=== PATIENT | female | born 1940 | race Caucasian/White ===

== ENCOUNTER 2022-02-06 01:10 | Inpatient (IN) | payer MEDICARE, OTHER ==
[~2022-02-06] VITALS: Ht 162.6 cm; Wt 62.1 kg
[2022-02-06] VITALS (45 sets, daily range): BP systolic 95–165; BP diastolic 35–120
[2022-02-06] MEDS ORDERED: ALBUTEROL (0.083%) 2.5MG/3ML NEB HHN STA (01:50)
[2022-02-06] MEDS ORDERED: IPRATROPIUM BROMIDE (0.02%) 0.5MG/2.5ML NEB HHN STA (01:50)
[2022-02-06] MEDS ORDERED: METHYLPREDNISOLONE SOD SUCC 125 MG/2 ML VIAL IV STA (01:50)
[2022-02-06 02:14] LABS: BASOPHILS % 0.1 % (0.0-2.0); EOSINOPHILS % 0.1 % (0.0-5.0); HEMATOCRIT. 38.6 % (36.0-48.0); HEMOGLOBIN. 12.9 g/dL (12.0-16.0); LYMPHOCYTES % 8.6 % (20.0-50.0); MEAN CORPUSCULAR HEMOGLOBIN 31.3 pg (28.0-32.0); MEAN CORPUSCULAR VOLUME 93.6 fL (81.0-99.0); MEAN PLATELET VOLUME 9.6 fl (7.4-10.4); MONOCYTES % 8.4 % (2.0-8.0); NEUTROPHILS % 82.8 % (40.0-76.0); PLATELET 146 x1000/uL (130-400); RED BLOOD CELL COUNT 4.12 mill/uL (4.2-5.4)
[2022-02-06 02:17] LABS: CHLORIDE 108 mEq/L (98-107)
[2022-02-06 02:17] LABS: BG BASE EXCESS 1.6 mmol/L (-2.0-2.0); BG CARBOXYHEMOGLOBIN 0.8 % (0.5-1.5); BG DEOXYHEMOGLOBIN 0.5 % (0.0-5.0); BG FRACTION INSPIRED OXYGEN 100; BG METHEMOGLOBIN 0.2 % (0.0-1.5); BG OXYGEN SATURATION 99.5 % (92.0-98.5); BG OXYHEMOGLOBIN 98.5 % (94.0-97.0); BG PCO2 16.2 mmHg (35.0-45.0); BG PH 7.686 (7.350-7.450); BG PO2 200.5 mmHg (75.0-100.0); BG SAMPLE SITE RIGHT RADIAL; BG TOTAL HEMOGLOBIN 13.6 g/dL (12.0-18.0); BG VENT MODE MASK - NRB
[2022-02-06] MEDS ORDERED: AZITHROMYCIN 500MG/250ML 250 ML IV ONE (02:45)
[2022-02-06] MEDS ORDERED: CEFTRIAXONE 1 G PREMIX 50 ML IV ONE (02:45)
[2022-02-06] MEDS ORDERED: IOHEXOL-350 100 ML BOTTLE ONE (05:36)
[2022-02-06] MEDS ORDERED: SODIUM CHLORIDE 0.9% 1000ML BAG (SEPSIS BOLUS) IV ONE (06:00)
[2022-02-06] MEDS ORDERED: NOREPINEPHRINE 8MG/250ML PMX 250 ML IV STA (06:56)
[2022-02-06] MEDS ORDERED: CLONIDINE 0.1MG TABLET PO PRN (07:30)
[2022-02-06] MEDS ORDERED: ONDANSETRON HCL 4MG/2ML INJ IV PRN (07:30)
[2022-02-06] MEDS ORDERED: IPRATROPIUM/ALBUTEROL 0.5-3(2.5)MG/3ML NEB NEB PRN (07:30)
[2022-02-06] MEDS ORDERED: DOCUSATE SODIUM 100MG CAPSULE PO PRN (07:30)
[2022-02-06] MEDS ORDERED: NITROGLYCERIN 0.4MG TABLET SL SL PRN (07:30)
[2022-02-06] MEDS ORDERED: GUAIFENESIN 200MG/10ML SUGAR FREE UDC PO PRN (07:30)
[2022-02-06] MEDS ORDERED: MAGNESIUM/ALUMINUM HYDROXIDE/SIMETHICONE 30ML UDC PO PRN (07:30)
[2022-02-06] MEDS ORDERED: KETOROLAC 15MG/ML VIAL IV PRN (07:30)
[2022-02-06] MEDS ORDERED: ACETAMINOPHEN 325MG TABLET PO PRN ×2 (07:30)
[2022-02-06] MEDS ORDERED: SODIUM CHLORIDE 0.9% 1000ML BAG (SEPSIS BOLUS) IV NR (08:00)
[2022-02-06] MEDS ORDERED: PIPERACILLIN/TAZ 3.375G PREMIX 50 ML IV NR (08:00)
[2022-02-06 08:09] LABS: T4 FREE 1.48 ng/dL (0.76-1.46)
[2022-02-06 08:24] LABS: FOLIC ACID (FOLATE) SERUM 12.3 ng/mL (>5.38)
[2022-02-06] MEDS ORDERED: VANCOMYCIN 1.25GM PMX (XELLIA) 250 ML IV NR (08:30)
[2022-02-06] MEDS ORDERED: ASPIRIN 325MG EC TABLET PO SCH (09:00)
[2022-02-06] MEDS ORDERED: FAMOTIDINE 20MG TABLET PO SCH (09:00)
[2022-02-06] MEDS ORDERED: ZINC SULFATE 220 MG ( 50 ) CAPSULE PO SCH (09:00)
[2022-02-06] MEDS ORDERED: ENOXAPARIN 40MG/0.4ML SYR SUBCUT SCH (09:00)
[2022-02-06 09:35] LABS: BG BASE EXCESS -5.5 mmol/L (-2.0-2.0); BG CARBOXYHEMOGLOBIN 0.2 % (0.5-1.5); BG DEOXYHEMOGLOBIN 1.3 % (0.0-5.0); BG FRACTION INSPIRED OXYGEN 32; BG HCO3 ACT 18.3 mmol/L (22.0-26.0); BG METHEMOGLOBIN 0.4 % (0.0-1.5); BG OXYGEN SATURATION 98.7 % (92.0-98.5); BG OXYHEMOGLOBIN 98.1 % (94.0-97.0); BG PCO2 30.7 mmHg (35.0-45.0); BG PH 7.394 (7.350-7.450); BG PO2 144.4 mmHg (75.0-100.0); BG SAMPLE SITE RIGHT BRACHIAL; BG TOTAL HEMOGLOBIN 12.1 g/dL (12.0-18.0); BG VENT MODE NASAL CANNULA
[2022-02-06] MEDS: SODIUM CHLORIDE 0.9% 1,000 ML IV SCH ×2 (09:57→14:13)
[2022-02-06] MEDS: ASCORBIC ACID 500 MG TABLET PO SCH ×2 (10:09→22:05)
[2022-02-06] MEDS ORDERED: PIPERACILLIN/TAZ 3.375G PREMIX 50 ML IV SCH (14:00)
[2022-02-06 14:38] LABS: CLARITY URINE CLEAR (CLEAR); COLOR URINE YELLOW (YELLOW); KETONES URINE NEGATIVE (NEGATIVE); LEUKOCYTE ESTERASE URINE NEGATIVE (NEGATIVE); NITRITE URINE NEGATIVE (NEGATIVE); OCCULT BLOOD URINE TRACE (NEGATIVE); PROTEIN URINE NEGATIVE (NEGATIVE); SPECIFIC GRAVITY URINE 1.013 (1.005-1.030); UROBILINOGEN URINE 0.2 E.U./dL (0.2-1.0)
[2022-02-06 14:54] LABS: *AMPHETAMINES SCREEN URINE NEGATIVE (NEGATIVE); *BARBITURATES SCREEN URINE NEGATIVE (NEGATIVE)
[2022-02-06 14:55] LABS: *BENZODIAZEPINES SCREEN URINE NEGATIVE (NEGATIVE); *COCAINE SCREEN URINE NEGATIVE (NEGATIVE); CANNABINOID URINE SCREEN NEGATIVE (NEGATIVE); METHADONE URINE SCREEN NEGATIVE (NEGATIVE); OPIATES URINE SCREEN NEGATIVE (NEGATIVE); PHENCYCLIDINE URINE SCREEN NEGATIVE (NEGATIVE)
[2022-02-06] MEDS: NOREPINEPHRINE 8 MG in DEXT 5% WATER 242 ML IV PRN (15:14)
[2022-02-06] MEDS: PIPERACILLIN/TAZOBACTAM 3.375G in DEXT 5% WATER 50ML IV SCH ×2 (15:14→22:06)
[2022-02-06 15:35] LABS: CREATINE KINASE MB FRACTION 2.6 ng/mL (0.5-3.6)
[2022-02-06] MEDS ORDERED: MULT-1116 MT (16:19)
[2022-02-06] MEDS ORDERED: METH25VI63 IJ (16:19)
[2022-02-06] MEDS ORDERED: CALC-1249 MT (16:19)
[2022-02-06] MEDS ORDERED: MECO10005 (16:19)
[2022-02-06] MEDS ORDERED: FOLI0.4T6 MT (16:19)
[2022-02-06] MEDS ORDERED: OMEP20TA2 PO (16:19)
[2022-02-06] MEDS ORDERED: LUTE1CAP5 MT (16:19)
[2022-02-06] MEDS ORDERED: PARO10TA74 PO (16:19)
[2022-02-06] MEDS ORDERED: ETAN25DI2 SQ (16:19)
[2022-02-06] MEDS ORDERED: LEVO25TA7 PO (16:19)
[2022-02-06] MEDS ORDERED: LACT1CAP68 MT (16:19)
[2022-02-06] MEDS ORDERED: OXYB5TAB17 PO (16:19)
[2022-02-06] MEDS ORDERED: ATOR20TA65 PO (16:19)
[2022-02-06] MEDS ORDERED: ZOLPIDEM TARTRATE 5MG TABLET PO PRN (21:00)
[2022-02-06 23:52] LABS: CREATINE KINASE MB FRACTION 2.6 ng/mL (0.5-3.6)
[2022-02-07] VITALS (96 sets, daily range): BP systolic 82–147; BP diastolic 52–101
[2022-02-07] MEDS ORDERED: VANCOMYCIN 750MG PMX (XELLIA) 150 ML IV SCH
[2022-02-07] MEDS: VANCOMYCIN 750MG PMX (XELLIA) 150 ML IV SCH (04:56)
[2022-02-07 06:27] LABS: BASOPHILS % 0.1 % (0.0-2.0); EOSINOPHILS % 0.1 % (0.0-5.0); HEMATOCRIT. 31.6 % (36.0-48.0); HEMOGLOBIN. 10.2 g/dL (12.0-16.0); LYMPHOCYTES % 7.9 % (20.0-50.0); MEAN CORPUSCULAR HEMOGLOBIN 31.3 pg (28.0-32.0); MEAN CORPUSCULAR VOLUME 97.3 fL (81.0-99.0); MONOCYTES % 8.1 % (2.0-8.0); NEUTROPHILS % 83.8 % (40.0-76.0); PLATELET 123 x1000/uL (130-400); RED BLOOD CELL COUNT 3.25 mill/uL (4.2-5.4); RED CELL DISTRIBUTION WIDTH 16.1 % (11.6-14.6)
[2022-02-07] MEDS: PIPERACILLIN/TAZOBACTAM 3.375G in DEXT 5% WATER 50ML IV SCH ×3 (06:42→21:56)
[2022-02-07 06:49] LABS: CHLORIDE 115 mEq/L (98-107)
[2022-02-07 06:59] LABS: PHOSPHORUS 1.8 mg/dL (2.5-4.9)
[2022-02-07] MEDS ORDERED: ENOXAPARIN 30MG/0.3ML SYR SUBCUT SCH (09:00)
[2022-02-07] MEDS ORDERED: MAGNESIUM/ALUMINUM HYDROXIDE/SIMETHICONE 30ML UDC PO PRN (09:15)
[2022-02-07] MEDS ORDERED: IPRATROPIUM/ALBUTEROL 0.5-3(2.5)MG/3ML NEB NEB PRN (09:15)
[2022-02-07] MEDS ORDERED: NITROGLYCERIN 0.4MG TABLET SL SL PRN (09:15)
[2022-02-07] MEDS ORDERED: KETOROLAC 15MG/ML VIAL IV PRN (09:15)
[2022-02-07] MEDS ORDERED: ACETAMINOPHEN 325MG TABLET PO PRN (09:15)
[2022-02-07] MEDS ORDERED: ZOLPIDEM TARTRATE 5MG TABLET PO PRN (09:15)
[2022-02-07] MEDS ORDERED: GUAIFENESIN 200MG/10ML SUGAR FREE UDC PO PRN (09:15)
[2022-02-07] MEDS ORDERED: CLONIDINE 0.1MG TABLET PO PRN (09:15)
[2022-02-07] MEDS ORDERED: DOCUSATE SODIUM 100MG CAPSULE PO PRN (09:15)
[2022-02-07] MEDS: ZINC SULFATE 220 MG ( 50 ) CAPSULE PO SCH (11:21)
[2022-02-07] MEDS: ENOXAPARIN 30MG/0.3ML SYR SUBCUT SCH (11:21)
[2022-02-07] MEDS: ASCORBIC ACID 500 MG TABLET PO SCH ×2 (11:21→21:56)
[2022-02-07] MEDS: ASPIRIN 325MG EC TABLET PO SCH (11:21)
[2022-02-07] MEDS: FAMOTIDINE 20MG TABLET PO SCH (11:22)
[2022-02-07] MEDS: SODIUM CHLORIDE 0.9% 1,000 ML IV SCH (11:24)
[2022-02-07] MEDS ORDERED: MAGNESIUM 1 G PREMIX 100 ML IV SCH (12:00)
[2022-02-07] MEDS ORDERED: POTASSIUM PHOS,M-BASIC-D-BASIC 30 MMOL in DEXT 5% WATER 500 ML IV SCH (14:00)
[2022-02-07] MEDS: ACETAMINOPHEN 325MG TABLET PO PRN (18:02)
[2022-02-08] VITALS (76 sets, daily range): BP systolic 76–143; BP diastolic 39–112
[2022-02-08] MEDS: VANCOMYCIN 750MG PMX (XELLIA) 150 ML IV SCH ×2 (00:04→12:57)
[2022-02-08] MEDS: SODIUM CHLORIDE 0.9% 1,000 ML IV SCH ×2 (00:04→15:01)
[2022-02-08] MEDS: NOREPINEPHRINE 8 MG in DEXT 5% WATER 242 ML IV PRN (01:44)
[2022-02-08] MEDS: PIPERACILLIN/TAZOBACTAM 3.375G in DEXT 5% WATER 50ML IV SCH ×3 (05:29→21:56)
[2022-02-08] MEDS: ACETAMINOPHEN 325MG TABLET PO PRN ×3 (05:29→17:08)
[2022-02-08] MEDS: ENOXAPARIN 30MG/0.3ML SYR SUBCUT SCH (08:54)
[2022-02-08] MEDS: ZINC SULFATE 220 MG ( 50 ) CAPSULE PO SCH (08:54)
[2022-02-08] MEDS: ASPIRIN 325MG EC TABLET PO SCH (08:54)
[2022-02-08] MEDS: FAMOTIDINE 20MG TABLET PO SCH (08:55)
[2022-02-08] MEDS: ASCORBIC ACID 500 MG TABLET PO SCH ×2 (08:55→21:56)
[2022-02-09] VITALS (12 sets, daily range): BP systolic 107–151; BP diastolic 43–96
[2022-02-09] MEDS: VANCOMYCIN 750MG PMX (XELLIA) 150 ML IV SCH ×3 (00:04→23:03)
[2022-02-09] MEDS: SODIUM CHLORIDE 0.9% 1,000 ML IV SCH ×2 (02:27→15:28)
[2022-02-09] MEDS: PIPERACILLIN/TAZOBACTAM 3.375G in DEXT 5% WATER 50ML IV SCH ×3 (05:41→21:19)
[2022-02-09 06:48] LABS: CHLORIDE 112 mEq/L (98-107)
[2022-02-09] MEDS: ASPIRIN 325MG EC TABLET PO SCH (09:41)
[2022-02-09] MEDS: FAMOTIDINE 20MG TABLET PO SCH (09:41)
[2022-02-09] MEDS: ZINC SULFATE 220 MG ( 50 ) CAPSULE PO SCH (09:41)
[2022-02-09] MEDS: ENOXAPARIN 30MG/0.3ML SYR SUBCUT SCH (09:42)
[2022-02-09] MEDS: ASCORBIC ACID 500 MG TABLET PO SCH ×2 (09:42→20:16)
[2022-02-09] MEDS: ACETAMINOPHEN 325MG TABLET PO PRN (12:16)
[2022-02-09] MEDS: ONDANSETRON HCL 4MG/2ML INJ IV PRN (15:28)
[2022-02-09] MEDS ORDERED: POTASSIUM CHLORIDE 20MEQ/PACKET PO NR (16:45)
[2022-02-09] MEDS: SUCRALFATE 1 G/10 ML UDC PO SCH ×2 (18:37→20:15)
[2022-02-10] VITALS (12 sets, daily range): BP systolic 101–144; BP diastolic 58–115
[2022-02-10] MEDS: SODIUM CHLORIDE 0.9% 1,000 ML IV SCH ×2 (05:33→18:18)
[2022-02-10] MEDS: PIPERACILLIN/TAZOBACTAM 3.375G in DEXT 5% WATER 50ML IV SCH (05:33)
[2022-02-10 06:05] LABS: HEMATOCRIT. 33.7 % (36.0-48.0); HEMOGLOBIN. 11.2 g/dL (12.0-16.0); MEAN CORPUSCULAR HEMOGLOBIN 31.2 pg (28.0-32.0); MEAN CORPUSCULAR VOLUME 93.8 fL (81.0-99.0); MEAN PLATELET VOLUME 9.4 fl (7.4-10.4); PLATELET 145 x1000/uL (130-400); RED BLOOD CELL COUNT 3.59 mill/uL (4.2-5.4); RED CELL DISTRIBUTION WIDTH 15.9 % (11.6-14.6)
[2022-02-10 06:21] LABS: CHLORIDE 116 mEq/L (98-107)
[2022-02-10] MEDS: ZINC SULFATE 220 MG ( 50 ) CAPSULE PO SCH (08:48)
[2022-02-10] MEDS: FAMOTIDINE 20MG TABLET PO SCH (08:48)
[2022-02-10] MEDS: ASCORBIC ACID 500 MG TABLET PO SCH ×2 (08:48→20:40)
[2022-02-10] MEDS: SUCRALFATE 1 G/10 ML UDC PO SCH ×4 (08:49→20:40)
[2022-02-10] MEDS: ENOXAPARIN 30MG/0.3ML SYR SUBCUT SCH (08:49)
[2022-02-10] MEDS: ASPIRIN 325MG EC TABLET PO SCH (08:49)
[2022-02-10] MEDS: ACETAMINOPHEN 325MG TABLET PO PRN ×2 (09:54→15:10)
[2022-02-10] MEDS ORDERED: POTASSIUM CHLORIDE 20MEQ/PACKET PO NR (10:00)
[2022-02-10] MEDS: ONDANSETRON HCL 4MG/2ML INJ IV PRN ×3 (10:07→20:40)
[2022-02-10] MEDS: VANCOMYCIN 750MG PMX (XELLIA) 150 ML IV SCH (11:40)
[2022-02-10] MEDS ORDERED: LEVOFLOXACIN 750MG PREMIX 150 ML IV SCH (12:00)
[2022-02-10] MEDS ORDERED: NALOXONE HCL 0.4MG/ML VIAL IV PRN (13:30)
[2022-02-10] MEDS: LEVOFLOXACIN 750MG PREMIX 150 ML IV SCH (15:10)
[2022-02-10 15:29] LABS: PLATELET ESTIMATE NORMAL
[2022-02-10] MEDS: TRAMADOL 50MG TABLET PO PRN (21:52)
[2022-02-11] VITALS (12 sets, daily range): BP systolic 110–138; BP diastolic 69–83
[2022-02-11] MEDS: ONDANSETRON HCL 4MG/2ML INJ IV PRN ×3 (04:57→10:15)
[2022-02-11] MEDS: TRAMADOL 50MG TABLET PO PRN (05:18)
[2022-02-11 05:59] LABS: HEMOGLOBIN. 11.5 g/dL (12.0-16.0); MEAN CORPUSCULAR HEMOGLOBIN 31.2 pg (28.0-32.0); MEAN CORPUSCULAR VOLUME 92.3 fL (81.0-99.0); MEAN PLATELET VOLUME 9.2 fl (7.4-10.4); PLATELET 156 x1000/uL (130-400); RED BLOOD CELL COUNT 3.68 mill/uL (4.2-5.4); RED CELL DISTRIBUTION WIDTH 16.1 % (11.6-14.6)
[2022-02-11] MEDS: SUCRALFATE 1 G/10 ML UDC PO SCH ×4 (06:31→21:49)
[2022-02-11] MEDS: SODIUM CHLORIDE 0.9% 1,000 ML IV SCH ×2 (06:31→21:49)
[2022-02-11 08:17] LABS: CHLORIDE 107 mEq/L (98-107)
[2022-02-11 08:20] LABS: PHOSPHORUS 1.4 mg/dL (2.5-4.9)
[2022-02-11] MEDS: ZINC SULFATE 220 MG ( 50 ) CAPSULE PO SCH (09:00)
[2022-02-11] MEDS: ASCORBIC ACID 500 MG TABLET PO SCH ×2 (09:00→21:49)
[2022-02-11] MEDS: FAMOTIDINE 20MG TABLET PO SCH (09:00)
[2022-02-11] MEDS: ASPIRIN 325MG EC TABLET PO SCH (09:00)
[2022-02-11] MEDS ORDERED: POTASSIUM CHLORIDE 20MEQ/PACKET PO SCH (10:00)
[2022-02-11] MEDS: ENOXAPARIN 30MG/0.3ML SYR SUBCUT SCH ×2 (10:07→10:16)
[2022-02-11] MEDS ORDERED: POTASSIUM PHOS,M-BASIC-D-BASIC 30 MMOL in DEXT 5% WATER 500 ML IV SCH (12:00)
[2022-02-11 13:33] LABS: PLATELET ESTIMATE NORMAL
[2022-02-12] VITALS (9 sets, daily range): BP systolic 110–140; BP diastolic 62–81
[2022-02-12 05:47] LABS: HEMATOCRIT. 33.8 % (36.0-48.0); HEMOGLOBIN. 11.5 g/dL (12.0-16.0); MEAN CORPUSCULAR HEMOGLOBIN 31.1 pg (28.0-32.0); MEAN CORPUSCULAR VOLUME 91.9 fL (81.0-99.0); MEAN PLATELET VOLUME 9.3 fl (7.4-10.4); PLATELET 170 x1000/uL (130-400); RED BLOOD CELL COUNT 3.68 mill/uL (4.2-5.4); RED CELL DISTRIBUTION WIDTH 16.2 % (11.6-14.6)
[2022-02-12 06:08] LABS: CHLORIDE 111 mEq/L (98-107)
[2022-02-12 06:13] LABS: PHOSPHORUS 1.5 mg/dL (2.5-4.9)
[2022-02-12] MEDS: SUCRALFATE 1 G/10 ML UDC PO SCH ×3 (08:07→18:11)
[2022-02-12] MEDS: FAMOTIDINE 20MG TABLET PO SCH (08:08)
[2022-02-12] MEDS: ZINC SULFATE 220 MG ( 50 ) CAPSULE PO SCH (08:08)
[2022-02-12] MEDS: ASCORBIC ACID 500 MG TABLET PO SCH (08:08)
[2022-02-12] MEDS: ASPIRIN 325MG EC TABLET PO SCH (08:08)
[2022-02-12] MEDS ORDERED: LEVO750T46 MT (12:14)
[2022-02-12] MEDS ORDERED: ASCO500T20 PO (12:14)
[2022-02-12] MEDS ORDERED: SENN-257 MT (12:14)
[2022-02-12] MEDS ORDERED: ZINC220C2 PO (12:14)
[2022-02-12] MEDS ORDERED: POTASSIUM CHLORIDE 20MEQ/PACKET PO NR (13:00)
[2022-02-12] MEDS: LEVOFLOXACIN 750MG PREMIX 150 ML IV SCH (13:24)
[2022-02-12] MEDS: SODIUM CHLORIDE 0.9% 1,000 ML IV SCH (13:24)
[2022-02-12] MEDS ORDERED: POTASSIUM PHOS,M-BASIC-D-BASIC 30 MMOL in DEXT 5% WATER 500 ML IV NR (15:00)
[2022-02-12 17:36] LABS: PLATELET ESTIMATE NORMAL
== END 2022-02-12 23:25 | disposition home health service (06) | DRG 871 ==
LOC: ER 01:10 → MICUSO 03:53 → ENRESERV 09:34 → CVICU 11:42 → 5EST 02-08 21:27
PROVIDERS: ADMIT Internal Medicine; ATTEND Internal Medicine
PROC: 05HY33Z Insertion of Infusion Device into Upper Vein, Percutaneous Approach (ICD-10-PCS; principal; 2022-02-06)
PROC: B543ZZA Ultrasonography of Right Jugular Veins, Guidance (ICD-10-PCS; 2022-02-06)
DX: A41.9 Sepsis, unspecified organism (principal); J18.9 Pneumonia, unspecified organism; R65.21 Severe sepsis with septic shock; J96.01 Acute respiratory failure with hypoxia; G92.8 Other toxic encephalopathy; E44.0 Moderate protein-calorie malnutrition; E87.3 Alkalosis; Z20.822 Contact with and (suspected) exposure to COVID-19; M06.9 Rheumatoid arthritis, unspecified; R26.9 Unspecified abnormalities of gait and mobility; R53.81 Other malaise; E87.6 Hypokalemia; E83.39 Other disorders of phosphorus metabolism; D64.9 Anemia, unspecified; E83.51 Hypocalcemia; F03.90 Unspecified dementia, unspecified severity, without behavioral disturbance, psychotic disturbance, mood disturbance, and anxiety; Z98.82 Breast implant status; Z82.49 Family history of ischemic heart disease and other diseases of the circulatory system; Z68.23 Body mass index [BMI] 23.0-23.9, adult
CPT/HCPCS: 36415; 36600; 71045; 71275; 80048; 80053; 80061; 80202; 80305; 81003; 82375; 82550; 82553; 82607; 82746; 82805; 83036; 83540; 83550; 83605; 83735; 83880; 84100; 84145; 84439; 84443; 84484; 85025; 85379; 86850; 86900; 87426; 93005; 93306; 93970; 97161; 97166; 99291; J0456; J0696; J1650; J1885; J1956; J2405; J2543; J2930; J3370; J3475; J3490; J7030; J7040; J7060; Q9967; A4315

== ENCOUNTER 2022-07-15 19:50 | Inpatient (IN) | payer MEDICARE, OTHER ==
[~2022-07-15] VITALS: Ht 162.6 cm; Wt 60.8 kg
[~2022-07-15 19:50] MED LIST: ASCO500T20 PO; ATOR20TA65 PO; CALC-1249 MT; FOLI0.4T6 MT; LACT1CAP68 MT; LEVO25TA7 PO; LEVO750T46 MT; MECO10005; MULT-1116 MT; OMEP20TA23 PO; PARO10TA74 PO; SENN-257 MT; ZINC220C2 PO
[2022-07-15 21:27] LABS: HEMATOCRIT. 36.6 % (36.0-48.0); MEAN CORPUSCULAR HEMOGLOBIN 30.1 pg (28.0-32.0); MEAN CORPUSCULAR VOLUME 92.2 fL (81.0-99.0); MEAN PLATELET VOLUME 8.5 fl (7.4-10.4); PLATELET 168 x1000/uL (130-400); RED BLOOD CELL COUNT 3.98 mill/uL (4.2-5.4); RED CELL DISTRIBUTION WIDTH 15.1 % (11.6-14.6)
[2022-07-15 21:32] LABS: CHLORIDE 102 mEq/L (98-107)
[2022-07-15 22:08] LABS: PLATELET ESTIMATE NORMAL
[2022-07-15] MEDS ORDERED: SODIUM CHLORIDE 0.9% 1000ML BAG (SEPSIS BOLUS) IV ONE (22:30)
[2022-07-15 23:58] LABS: CLARITY URINE CLEAR (CLEAR); COLOR URINE YELLOW (YELLOW); KETONES URINE TRACE (NEGATIVE); LEUKOCYTE ESTERASE URINE 2+ (NEGATIVE); NITRITE URINE NEGATIVE (NEGATIVE); OCCULT BLOOD URINE TRACE (NEGATIVE); PH URINE 7.5 (4.5-8.0); PROTEIN URINE NEGATIVE (NEGATIVE); SPECIFIC GRAVITY URINE 1.007 (1.005-1.030); UROBILINOGEN URINE 0.2 E.U./dL (0.2-1.0)
[2022-07-16] VITALS (53 sets, daily range): BP systolic 80–167; BP diastolic 33–80
[2022-07-16] MEDS ORDERED: NOREPINEPHRINE 8MG/250ML PMX 250 ML IV ONE (00:15)
[2022-07-16] MEDS ORDERED: PIPERACILLIN/TAZ 3.375G PREMIX 50 ML IV ONE (00:15)
[2022-07-16] MEDS ORDERED: VANCOMYCIN 1G PREMIX 200 ML IV ONE (00:15)
[2022-07-16] MEDS ORDERED: DOCUSATE SODIUM 100MG CAPSULE PO PRN (06:00)
[2022-07-16] MEDS ORDERED: HYDROCODONE/ACETAMINOPHEN 5/325MG TABLET PO PRN (06:00)
[2022-07-16] MEDS ORDERED: ACETAMINOPHEN 325MG TABLET PO PRN ×2 (06:00)
[2022-07-16] MEDS ORDERED: ONDANSETRON HCL 4MG/2ML INJ IV PRN (06:00)
[2022-07-16] MEDS ORDERED: CLONIDINE 0.1MG TABLET PO PRN (06:00)
[2022-07-16] MEDS ORDERED: GUAIFENESIN 200MG/10ML SUGAR FREE UDC PO PRN (06:00)
[2022-07-16] MEDS ORDERED: MAGNESIUM/ALUMINUM HYDROXIDE/SIMETHICONE 30ML UDC PO PRN (06:00)
[2022-07-16] MEDS ORDERED: IPRATROPIUM/ALBUTEROL 0.5-3(2.5)MG/3ML NEB HHN PRN (06:00)
[2022-07-16] MEDS ORDERED: DEXTROSE 50% WATER 50ML SYRINGE IV PRN (06:15)
[2022-07-16] MEDS: SODIUM CHLORIDE 0.9% 1,000 ML IV SCH ×2 (06:24→15:25)
[2022-07-16] MEDS ORDERED: PIPERACILLIN/TAZOBACTAM 3.375 G in DEXTROSE 5% WATER 50 ML IV SCH (06:30)
[2022-07-16 07:15] LABS: T4 FREE 1.1 ng/dL (0.76-1.46)
[2022-07-16] MEDS: LEVOTHYROXINE SODIUM 25MCG TABLET PO SCH (08:22)
[2022-07-16] MEDS: ASCORBIC ACID 500 MG TABLET PO SCH ×2 (09:00→23:08)
[2022-07-16] MEDS: ZINC SULFATE 220 MG ( 50 ) CAPSULE PO SCH (09:00)
[2022-07-16] MEDS ORDERED: NOREPINEPHRINE 32 MG in DEXT 5% WATER 218 ML IV PRN ×4 (09:15)
[2022-07-16] MEDS: BLOOD SUGAR DIAGNOSTIC STRIP TEST SCH ×4 (09:41→21:00)
[2022-07-16] MEDS: ENOXAPARIN 40MG/0.4ML SYR SUBCUT SCH (09:49)
[2022-07-16] MEDS: FAMOTIDINE 20MG/2ML VIAL IV SCH (09:50)
[2022-07-16] MEDS ORDERED: LIDOCAINE HCL/PF 1% 10 MG/ML 5ML VIAL ONE (11:11)
[2022-07-16] MEDS: PIPERACILLIN/TAZOBACTAM 3.375 G in DEXTROSE 5% WATER 50 ML IV SCH ×2 (13:36→23:09)
[2022-07-16] MEDS ORDERED: PIPERACILLIN/TAZ 3.375G PREMIX 50 ML IV SCH (14:00)
[2022-07-16] MEDS: VANCOMYCIN 750MG PMX (XELLIA) 150 ML IV SCH (17:04)
[2022-07-16] MEDS ORDERED: VANCOMYCIN 750MG PMX (XELLIA) 150 ML IV SCH (18:00)
[2022-07-16] MEDS: PAROXETINE HCL 10MG TABLET PO SCH (23:08)
[2022-07-16] MEDS: ATORVASTATIN CALCIUM 20MG TABLET PO SCH (23:08)
[2022-07-17] VITALS (76 sets, daily range): BP systolic 64–174; BP diastolic 50–116
[2022-07-17] MEDS: SODIUM CHLORIDE 0.9% 1,000 ML IV SCH ×3 (02:00→21:05)
[2022-07-17 05:47] LABS: BASOPHILS % 0.3 % (0.0-2.0); EOSINOPHILS % 4.1 % (0.0-5.0); HEMATOCRIT. 36.5 % (36.0-48.0); LYMPHOCYTES % 20.4 % (20.0-50.0); MEAN CORPUSCULAR VOLUME 93.9 fL (81.0-99.0); MONOCYTES % 10.5 % (2.0-8.0); NEUTROPHILS % 64.7 % (40.0-76.0); PLATELET 163 x1000/uL (130-400); RED BLOOD CELL COUNT 3.88 mill/uL (4.2-5.4); RED CELL DISTRIBUTION WIDTH 15.6 % (11.6-14.6)
[2022-07-17 06:08] LABS: CHLORIDE 109 mEq/L (98-107)
[2022-07-17] MEDS: PIPERACILLIN/TAZOBACTAM 3.375 G in DEXTROSE 5% WATER 50 ML IV SCH ×3 (07:10→21:02)
[2022-07-17] MEDS: BLOOD SUGAR DIAGNOSTIC STRIP TEST SCH ×4 (07:50→21:03)
[2022-07-17] MEDS: LEVOTHYROXINE SODIUM 25MCG TABLET PO SCH (07:50)
[2022-07-17] MEDS ORDERED: POTASSIUM CHLORIDE 20MEQ/PACKET PO NR (08:15)
[2022-07-17 09:23] LABS: BG BASE EXCESS -2.4 mmol/L (-2.0-2.0); BG CARBOXYHEMOGLOBIN 0.3 % (0.5-1.5); BG DEOXYHEMOGLOBIN 3.2 % (0.0-5.0); BG FRACTION INSPIRED OXYGEN 21; BG HCO3 ACT 19.8 mmol/L (22.0-26.0); BG METHEMOGLOBIN 0.2 % (0.0-1.5); BG OXYGEN SATURATION 96.8 % (92.0-98.5); BG OXYHEMOGLOBIN 96.3 % (94.0-97.0); BG PCO2 27.2 mmHg (35.0-45.0); BG PH 7.481 (7.350-7.450); BG PO2 84.1 mmHg (75.0-100.0); BG SAMPLE SITE LEFT RADIAL; BG TOTAL HEMOGLOBIN 12.5 g/dL (12.0-18.0); BG VENT MODE ROOM AIR
[2022-07-17] MEDS: ZINC SULFATE 220 MG ( 50 ) CAPSULE PO SCH (09:37)
[2022-07-17] MEDS: ASCORBIC ACID 500 MG TABLET PO SCH ×2 (09:37→21:01)
[2022-07-17] MEDS: FAMOTIDINE 20MG/2ML VIAL IV SCH (09:38)
[2022-07-17] MEDS: ENOXAPARIN 40MG/0.4ML SYR SUBCUT SCH (09:38)
[2022-07-17] MEDS ORDERED: MORPHINE SULFATE 250 MG in DEXT 5% WATER 225 ML IV PRN (10:30)
[2022-07-17] MEDS ORDERED: NALOXONE HCL 0.4MG/ML VIAL IV PRN (10:30)
[2022-07-17] MEDS: VANCOMYCIN 750MG PMX (XELLIA) 150 ML IV SCH (12:00)
[2022-07-17] MEDS: ATORVASTATIN CALCIUM 20MG TABLET PO SCH (21:01)
[2022-07-17] MEDS: PAROXETINE HCL 10MG TABLET PO SCH (21:01)
[2022-07-18] VITALS (34 sets, daily range): BP systolic 81–136; BP diastolic 27–77
[2022-07-18 06:07] LABS: BASOPHILS % 0.1 % (0.0-2.0); EOSINOPHILS % 6.4 % (0.0-5.0); HEMATOCRIT. 35.5 % (36.0-48.0); HEMOGLOBIN. 11.7 g/dL (12.0-16.0); LYMPHOCYTES % 23.8 % (20.0-50.0); MEAN CORPUSCULAR HEMOGLOBIN 30.9 pg (28.0-32.0); MEAN CORPUSCULAR VOLUME 93.5 fL (81.0-99.0); MEAN PLATELET VOLUME 9.6 fl (7.4-10.4); MONOCYTES % 14.3 % (2.0-8.0); NEUTROPHILS % 55.4 % (40.0-76.0); PLATELET 129 x1000/uL (130-400); RED BLOOD CELL COUNT 3.79 mill/uL (4.2-5.4); RED CELL DISTRIBUTION WIDTH 15.5 % (11.6-14.6)
[2022-07-18] MEDS: PIPERACILLIN/TAZOBACTAM 3.375 G in DEXTROSE 5% WATER 50 ML IV SCH ×3 (06:26→22:25)
[2022-07-18] MEDS: VANCOMYCIN 750MG PMX (XELLIA) 150 ML IV SCH (06:26)
[2022-07-18 06:51] LABS: CHLORIDE 108 mEq/L (98-107)
[2022-07-18 07:16] LABS: VANCOMYCIN TROUGH 8.5 ug/mL (5.0-10.0)
[2022-07-18] MEDS: BLOOD SUGAR DIAGNOSTIC STRIP TEST SCH ×4 (08:27→20:51)
[2022-07-18] MEDS: LEVOTHYROXINE SODIUM 25MCG TABLET PO SCH (08:27)
[2022-07-18] MEDS: ZINC SULFATE 220 MG ( 50 ) CAPSULE PO SCH (08:28)
[2022-07-18] MEDS: ENOXAPARIN 40MG/0.4ML SYR SUBCUT SCH (08:28)
[2022-07-18] MEDS: ASCORBIC ACID 500 MG TABLET PO SCH ×2 (08:28→20:51)
[2022-07-18] MEDS: FAMOTIDINE 20MG/2ML VIAL IV SCH (08:28)
[2022-07-18] MEDS: SODIUM CHLORIDE 0.9% 1,000 ML IV SCH ×2 (08:28→17:55)
[2022-07-18] MEDS: VANCOMYCIN 500MG PREMIX 100 ML IV SCH (20:51)
[2022-07-18] MEDS: PAROXETINE HCL 10MG TABLET PO SCH (20:51)
[2022-07-18] MEDS: ATORVASTATIN CALCIUM 20MG TABLET PO SCH (20:51)
[2022-07-19] VITALS (32 sets, daily range): BP systolic 101–165; BP diastolic 39–82
[2022-07-19] MEDS: SODIUM CHLORIDE 0.9% 1,000 ML IV SCH ×2 (04:07→23:13)
[2022-07-19] MEDS: PIPERACILLIN/TAZOBACTAM 3.375 G in DEXTROSE 5% WATER 50 ML IV SCH ×3 (05:38→22:27)
[2022-07-19 05:51] LABS: HEMATOCRIT. 35.7 % (36.0-48.0); HEMOGLOBIN. 11.7 g/dL (12.0-16.0); MEAN CORPUSCULAR HEMOGLOBIN 30.6 pg (28.0-32.0); MEAN PLATELET VOLUME 8.9 fl (7.4-10.4); PLATELET 133 x1000/uL (130-400); RED BLOOD CELL COUNT 3.84 mill/uL (4.2-5.4)
[2022-07-19 06:10] LABS: CHLORIDE 113 mEq/L (98-107)
[2022-07-19] MEDS: BLOOD SUGAR DIAGNOSTIC STRIP TEST SCH ×4 (07:50→20:32)
[2022-07-19 08:06] LABS: PLATELET ESTIMATE NORMAL
[2022-07-19] MEDS: VANCOMYCIN 500MG PREMIX 100 ML IV SCH ×2 (09:00→20:32)
[2022-07-19] MEDS: FAMOTIDINE 20MG/2ML VIAL IV SCH (09:06)
[2022-07-19] MEDS: ENOXAPARIN 40MG/0.4ML SYR SUBCUT SCH (09:06)
[2022-07-19] MEDS: ZINC SULFATE 220 MG ( 50 ) CAPSULE PO SCH (09:07)
[2022-07-19] MEDS: LEVOTHYROXINE SODIUM 25MCG TABLET PO SCH (09:07)
[2022-07-19] MEDS: ASCORBIC ACID 500 MG TABLET PO SCH ×2 (09:07→20:32)
[2022-07-19] MEDS: ATORVASTATIN CALCIUM 20MG TABLET PO SCH (20:32)
[2022-07-19] MEDS: PAROXETINE HCL 10MG TABLET PO SCH (20:32)
[2022-07-20] VITALS (19 sets, daily range): BP systolic 101–148; BP diastolic 43–102
[2022-07-20] MEDS: PIPERACILLIN/TAZOBACTAM 3.375 G in DEXTROSE 5% WATER 50 ML IV SCH ×2 (05:29→13:29)
[2022-07-20 05:49] LABS: CHLORIDE 112 mEq/L (98-107)
[2022-07-20 05:50] LABS: HEMATOCRIT. 32.4 % (36.0-48.0); MEAN CORPUSCULAR VOLUME 91.5 fL (81.0-99.0); PLATELET 143 x1000/uL (130-400); RED BLOOD CELL COUNT 3.54 mill/uL (4.2-5.4); RED CELL DISTRIBUTION WIDTH 15.3 % (11.6-14.6)
[2022-07-20] MEDS: ENOXAPARIN 40MG/0.4ML SYR SUBCUT SCH (08:17)
[2022-07-20] MEDS: LEVOTHYROXINE SODIUM 25MCG TABLET PO SCH (08:17)
[2022-07-20] MEDS: ZINC SULFATE 220 MG ( 50 ) CAPSULE PO SCH (08:17)
[2022-07-20] MEDS: ASCORBIC ACID 500 MG TABLET PO SCH ×2 (08:17→21:05)
[2022-07-20] MEDS: FAMOTIDINE 20MG/2ML VIAL IV SCH (08:17)
[2022-07-20] MEDS: VANCOMYCIN 500MG PREMIX 100 ML IV SCH (08:18)
[2022-07-20] MEDS: BLOOD SUGAR DIAGNOSTIC STRIP TEST SCH ×4 (08:18→20:56)
[2022-07-20] MEDS ORDERED: POTASSIUM CHLORIDE 20MEQ TABLET SR PO SCH (08:30)
[2022-07-20] MEDS ORDERED: CALCIUM 1250MG TABLET (500MG ELEMENTAL CALCIUM) PO SCH (08:30)
[2022-07-20] MEDS: SODIUM CHLORIDE 0.9% 1,000 ML IV SCH ×2 (09:02→19:57)
[2022-07-20 09:39] LABS: PLATELET ESTIMATE NORMAL
[2022-07-20] MEDS ORDERED: ASCO500T20 PO (11:58)
[2022-07-20] MEDS ORDERED: LEVO500T90 MT (11:58)
[2022-07-20] MEDS ORDERED: ZINC220C2 PO (11:58)
[2022-07-20] MEDS: LEVOFLOXACIN 500MG TABLET PO SCH (13:29)
[2022-07-20] MEDS ORDERED: VANCOMYCIN 750MG PREMIX 150 ML IV SCH (21:00)
[2022-07-20] MEDS: PAROXETINE HCL 10MG TABLET PO SCH (21:05)
[2022-07-20] MEDS: ATORVASTATIN CALCIUM 20MG TABLET PO SCH (21:05)
[2022-07-21 01:45] VITALS: BP 126/62
[2022-07-21 03:45] VITALS: BP 113/63
[2022-07-21 05:31] LABS: HEMATOCRIT 34.8 % (36.0-48.0); HEMOGLOBIN 11.4 g/dL (12.0-16.0); MEAN CORPUSCULAR HEMOGLOBIN 30.6 pg (28.0-32.0); MEAN CORPUSCULAR VOLUME 93.1 fL (81.0-99.0); PLATELET 143 x1000/uL (130-400); RED BLOOD CELL COUNT 3.74 mill/uL (4.2-5.4); RED CELL DISTRIBUTION WIDTH 15.2 % (11.6-14.6)
[2022-07-21 05:43] LABS: CHLORIDE 113 mEq/L (98-107)
[2022-07-21 05:46] VITALS: BP 124/57
[2022-07-21] MEDS: LEVOTHYROXINE SODIUM 25MCG TABLET PO SCH (06:34)
[2022-07-21] MEDS: SODIUM CHLORIDE 0.9% 1,000 ML IV SCH (06:34)
[2022-07-21] MEDS: BLOOD SUGAR DIAGNOSTIC STRIP TEST SCH (06:41)
[2022-07-21 08:00] VITALS: BP 102/34
[2022-07-21 09:00] VITALS: BP 102/78
[2022-07-21] MEDS: ZINC SULFATE 220 MG ( 50 ) CAPSULE PO SCH (09:13)
[2022-07-21] MEDS: ASCORBIC ACID 500 MG TABLET PO SCH (09:13)
[2022-07-21] MEDS: LEVOFLOXACIN 500MG TABLET PO SCH (09:13)
== END 2022-07-21 09:30 | disposition home health service (06) | DRG 871 ==
LOC: ER 19:50 → EDBEDREQTM 07-16 00:28 → EDBEDREQDT 07-16 00:28 → EDBEDREQ 07-16 00:28 → EDBEDREQSVC 07-16 00:28 → ENRESERV 07-16 07:57 → CVICU 07-16 09:06 → 5EST 07-20 11:33
PROVIDERS: ADMIT Internal Medicine; ATTEND Internal Medicine
PROC: 02HV33Z Insertion of Infusion Device into Superior Vena Cava, Percutaneous Approach (ICD-10-PCS; principal; 2022-07-16)
PROC: B548ZZA Ultrasonography of Superior Vena Cava, Guidance (ICD-10-PCS; 2022-07-16)
DX: A41.9 Sepsis, unspecified organism (principal); E43 Unspecified severe protein-calorie malnutrition; R65.21 Severe sepsis with septic shock; E87.1 Hypo-osmolality and hyponatremia; N39.0 Urinary tract infection, site not specified; G93.40 Encephalopathy, unspecified; E11.9 Type 2 diabetes mellitus without complications; M19.90 Unspecified osteoarthritis, unspecified site; E03.9 Hypothyroidism, unspecified; G30.9 Alzheimer's disease, unspecified; E78.5 Hyperlipidemia, unspecified; F02.80 Dementia in other diseases classified elsewhere, unspecified severity, without behavioral disturbance, psychotic disturbance, mood disturbance, and anxiety; Z20.822 Contact with and (suspected) exposure to COVID-19; Z79.899 Other long term (current) drug therapy; Z68.23 Body mass index [BMI] 23.0-23.9, adult; Z88.8 Allergy status to other drugs, medicaments and biological substances; Z79.890 Hormone replacement therapy
CPT/HCPCS: 36415; 36573; 36600; 71045; 80048; 80053; 80061; 80202; 81003; 82375; 82805; 82962; 83036; 83605; 84145; 84439; 84443; 84484; 85025; 85027; 85379; 87426; 93005; 93970; 97162; 97166; 99291; C1725; C9803; J1650; J2405; J2543; J3370; J3490; J7030; J7060

== ENCOUNTER 2023-07-18 15:46 | Inpatient (IN) | payer MEDICARE, OTHER ==
[~2023-07-18] VITALS: Ht 162.6 cm; Wt 65.3 kg
[~2023-07-18 15:46] MED LIST changes: +LEVO-65 MT; -LEVO750T46 MT
[2023-07-18 16:51] LABS: HEMATOCRIT. 39.3 % (36.0-48.0); HEMOGLOBIN. 12.9 g/dL (12.0-16.0); MEAN CORPUSCULAR HEMOGLOBIN 30.5 pg (28.0-32.0); MEAN CORPUSCULAR HGB CONC 32.8 g/dL (31.0-37.0); MEAN PLATELET VOLUME 9.3 fl (7.4-10.4); PLATELET 183 x1000/uL (130-400); RED BLOOD CELL COUNT 4.23 mill/uL (4.2-5.4); RED CELL DISTRIBUTION WIDTH 14.6 % (11.6-14.6); WHITE BLOOD COUNT 6.3 x1000/uL (4.5-11.0)
[2023-07-18 16:55] LABS: DIFFERENTIAL COMMENT 1
[2023-07-18 17:01] LABS: CHLORIDE 104 mEq/L (98-107); INDEX HEMOLYSI 1 (1-3); INDEX ICTERIC 1 (1-4); INDEX LIPEMIC 1 (1-3); POTASSIUM 3.5 mEq/L (3.5-5.1); SODIUM 139 mEq/L (136-145)
[2023-07-18 17:08] LABS: ALANINE AMINOTRANSFERASE 20 IU/L (13-61); ALBUMIN 3.2 g/dL (3.4-5.0); ASPARTATE AMINOTRANSFERASE 34 IU/L (15-37); CALCIUM 8.8 mg/dL (8.5-10.1); CARBON DIOXIDE 29 mEq/L (21-32); CREATININE 0.7 mg/dL (0.6-1.3); GLUCOSE 103 mg/dL (70-105); UREA NITROGEN BLOOD 14 mg/dL (7-21)
[2023-07-18 17:11] LABS: BILIRUBIN TOTAL 0.5 mg/dL (0.1-1.0); PROTEIN TOTAL 6.6 g/dL (6.0-8.3)
[2023-07-18 18:56] LABS: INR 1.1; PROTHROMBIN TIME 11.5 sec (9.6-11.0)
[2023-07-18 19:34] LABS: PLATELET ESTIMATE NORMAL
[2023-07-18 20:30] LABS: CLARITY URINE CLOUDY (CLEAR); COLOR URINE YELLOW (YELLOW); GLUCOSE URINE NEGATIVE (NEGATIVE); KETONES URINE NEGATIVE (NEGATIVE); LEUKOCYTE ESTERASE URINE 1+ (NEGATIVE); NITRITE URINE NEGATIVE (NEGATIVE); OCCULT BLOOD URINE TRACE (NEGATIVE); PH URINE 7.5 (4.5-8.0); PROTEIN URINE NEGATIVE (NEGATIVE); UROBILINOGEN URINE 0.2 E.U./dL (0.2-1.0)
[2023-07-18 20:59] LABS: BACTERIA URINE 2+; RBC URINE 0-2 /hpf (0-2); SQUAMOUS EPITHELIAL CELL URINE 1+ /lpf (RARE/1+)
[2023-07-18] MEDS ORDERED: CEFTRIAXONE 1GM PREMIX 50 ML IV STA (21:27)
[2023-07-19] MEDS ORDERED: ONDANSETRON HCL 4MG/2ML INJ IV PRN (00:30)
[2023-07-19] MEDS ORDERED: DOCUSATE SODIUM 100MG CAPSULE PO PRN (00:30)
[2023-07-19] MEDS ORDERED: GUAIFENESIN 200MG/10ML SUGAR FREE UDC PO PRN (00:30)
[2023-07-19] MEDS ORDERED: MAGNESIUM/ALUMINUM HYDROXIDE/SIMETHICONE 30ML UDC PO PRN (00:30)
[2023-07-19] MEDS ORDERED: ACETAMINOPHEN 325MG TABLET PO PRN ×2 (00:30)
[2023-07-19] MEDS ORDERED: CLONIDINE 0.1MG TABLET PO PRN (00:30)
[2023-07-19] MEDS ORDERED: IPRATROPIUM/ALBUTEROL 0.5-3(2.5)MG/3ML NEB HHN PRN (00:30)
[2023-07-19 01:23] VITALS: BP 109/53; PULSE 60; RESP 20; TEMP 98.6
[2023-07-19] MEDS: SODIUM CHLORIDE 0.45% 1,000 ML IV SCH (03:50)
[2023-07-19 04:00] VITALS: BP 112/54; PULSE 59; RESP 18; TEMP 97
[2023-07-19] MEDS: LEVOTHYROXINE SODIUM 100MCG TABLET PO SCH (06:20)
[2023-07-19] MEDS: PANTOPRAZOLE 40MG DR TABLET PO SCH ×2 (06:20→21:26)
[2023-07-19 06:26] LABS: INDEX HEMOLYSI 1 (1-3)
[2023-07-19 06:57] LABS: FOLIC ACID (FOLATE) SERUM >20 ng/mL ng/mL (>5.38); VITAMIN B12 SERUM 997 pg/mL (211-911)
[2023-07-19 08:26] VITALS: BP_SYST 116; BP_SYST 148; BP_DIAS 48; BP_DIAS 96; PULSE 102; PULSE 54; RESP 18; TEMP 97.6
[2023-07-19] MEDS ORDERED: CEFTRIAXONE 1GM PREMIX 50 ML IV SCH (09:00)
[2023-07-19] MEDS ORDERED: CEFTRIAXONE 1,000 MG in DEXTROSE 5% WATER 50 ML IV SCH (09:00)
[2023-07-19] MEDS: PAROXETINE HCL 10MG TABLET PO SCH (09:35)
[2023-07-19 12:00] VITALS: BP 106/39; PULSE 64; RESP 18; TEMP 97.5
[2023-07-19] MEDS: PIPERACILLIN/TAZOBACTAM 3.375 G in DEXTROSE 5% WATER 50 ML IV SCH ×2 (15:30→21:26)
[2023-07-19] MEDS: ENOXAPARIN 40MG/0.4ML SYR SUBCUT SCH (15:31)
[2023-07-19 16:00] VITALS: BP 117/56; PULSE 64; RESP 18; TEMP 97.7
[2023-07-19 16:44] LABS: PHOSPHORUS 2.8 mg/dL (2.5-4.9)
[2023-07-19 20:00] VITALS: BP 102/44; PULSE 69; RESP 20; TEMP 96.3
[2023-07-19] MEDS: SENNOSIDES/DOCUSATE SOD 8.6/50MG TABLET PO SCH (21:26)
[2023-07-20] VITALS: BP 140/56; PULSE 76; RESP 18; TEMP 96.8
[2023-07-20 01:44] LABS: *AMPHETAMINES SCREEN URINE NEGATIVE (NEGATIVE); *BARBITURATES SCREEN URINE NEGATIVE (NEGATIVE); *BENZODIAZEPINES SCREEN URINE NEGATIVE (NEGATIVE); *COCAINE SCREEN URINE NEGATIVE (NEGATIVE); CANNABINOID URINE SCREEN NEGATIVE (NEGATIVE); ECSTASY MDMA SCREEN URINE NEGATIVE (NEGATIVE); METHADONE URINE SCREEN NEGATIVE (NEGATIVE); OPIATES URINE SCREEN NEGATIVE (NEGATIVE); PHENCYCLIDINE URINE SCREEN NEGATIVE (NEGATIVE)
[2023-07-20 04:00] VITALS: BP 102/54; PULSE 54; PULSE 60; RESP 18; TEMP 96.9
[2023-07-20 05:44] LABS: BASOPHILS % 0.7 % (0.0-2.0); EOSINOPHILS % 4.3 % (0.0-5.0); HEMATOCRIT. 37.4 % (36.0-48.0); LYMPHOCYTES % 38.1 % (20.0-50.0); MEAN CORPUSCULAR HGB CONC 34.8 g/dL (31.0-37.0); MEAN CORPUSCULAR VOLUME 92.1 fL (81.0-99.0); MEAN PLATELET VOLUME 9.4 fl (7.4-10.4); MONOCYTES % 8.7 % (2.0-8.0); NEUTROPHILS % 48.2 % (40.0-76.0); PLATELET 173 x1000/uL (130-400); RED BLOOD CELL COUNT 4.06 mill/uL (4.2-5.4); RED CELL DISTRIBUTION WIDTH 14.1 % (11.6-14.6); WHITE BLOOD COUNT 5.5 x1000/uL (4.5-11.0)
[2023-07-20 06:31] LABS: INDEX HEMOLYSI 1 (1-3); INDEX ICTERIC 1 (1-4); INDEX LIPEMIC 1 (1-3)
[2023-07-20] MEDS: PIPERACILLIN/TAZOBACTAM 3.375 G in DEXTROSE 5% WATER 50 ML IV SCH ×3 (06:36→21:34)
[2023-07-20] MEDS: SODIUM CHLORIDE 0.45% 1,000 ML IV SCH (06:36)
[2023-07-20] MEDS: LEVOTHYROXINE SODIUM 100MCG TABLET PO SCH (06:36)
[2023-07-20] MEDS: PANTOPRAZOLE 40MG DR TABLET PO SCH ×2 (06:36→21:00)
[2023-07-20 06:43] LABS: ALANINE AMINOTRANSFERASE 20 IU/L (13-61); ALBUMIN 2.9 g/dL (3.4-5.0); ASPARTATE AMINOTRANSFERASE 29 IU/L (15-37); BILIRUBIN TOTAL 0.8 mg/dL (0.1-1.0); CALCIUM 7.3 mg/dL (8.5-10.1); CARBON DIOXIDE 26 mEq/L (21-32); CHLORIDE 111 mEq/L (98-107); CHOLESTEROL 117 mg/dL (<200); CREATININE 0.6 mg/dL (0.6-1.3); GLUCOSE 95 mg/dL (70-105); HDL CHOLESTEROL 60 mg/dL (40-59); LDL CHOLESTEROL 52 mg/dL (5-100); POTASSIUM 3.6 mEq/L (3.5-5.1); PROTEIN TOTAL 6.5 g/dL (6.0-8.3); SODIUM 141 mEq/L (136-145); T4 FREE 1.35 ng/dL (0.76-1.46); TRIGLYCERIDE 83 mg/dL (0-150); UREA NITROGEN BLOOD 9 mg/dL (7-21)
[2023-07-20 08:00] VITALS: BP 108/46; PULSE 62; RESP 18; TEMP 97.8
[2023-07-20] MEDS: PAROXETINE HCL 10MG TABLET PO SCH (09:18)
[2023-07-20 12:00] VITALS: BP 119/44; PULSE 64; RESP 18; TEMP 97.5
[2023-07-20] MEDS: ENOXAPARIN 40MG/0.4ML SYR SUBCUT SCH (15:50)
[2023-07-20 16:00] VITALS: BP 103/51; PULSE 61; RESP 18; TEMP 97.7
[2023-07-20 20:00] VITALS: BP 99/40; PULSE 64; RESP 19; TEMP 96.5
[2023-07-20] MEDS: SENNOSIDES/DOCUSATE SOD 8.6/50MG TABLET PO SCH (21:00)
[2023-07-21] VITALS: BP 114/43; PULSE 66; RESP 20; TEMP 97.1
[2023-07-21 04:00] VITALS: BP 113/57; PULSE 59; RESP 20; TEMP 96.9
[2023-07-21 06:01] LABS: BASOPHILS % 0.6 % (0.0-2.0); EOSINOPHILS % 3.8 % (0.0-5.0); HEMATOCRIT. 35.8 % (36.0-48.0); LYMPHOCYTES % 32.8 % (20.0-50.0); MEAN CORPUSCULAR HEMOGLOBIN 31.2 pg (28.0-32.0); MEAN CORPUSCULAR HGB CONC 33.6 g/dL (31.0-37.0); MEAN CORPUSCULAR VOLUME 92.8 fL (81.0-99.0); MEAN PLATELET VOLUME 9.2 fl (7.4-10.4); MONOCYTES % 10.4 % (2.0-8.0); NEUTROPHILS % 52.4 % (40.0-76.0); PLATELET 164 x1000/uL (130-400); RED BLOOD CELL COUNT 3.85 mill/uL (4.2-5.4); RED CELL DISTRIBUTION WIDTH 14.1 % (11.6-14.6); WHITE BLOOD COUNT 4.9 x1000/uL (4.5-11.0)
[2023-07-21] MEDS: PIPERACILLIN/TAZOBACTAM 3.375 G in DEXTROSE 5% WATER 50 ML IV SCH ×3 (06:32→21:48)
[2023-07-21 06:45] LABS: CHLORIDE 113 mEq/L (98-107); INDEX HEMOLYSI 1 (1-3); INDEX ICTERIC 1 (1-4); INDEX LIPEMIC 1 (1-3); POTASSIUM 3.6 mEq/L (3.5-5.1); SODIUM 141 mEq/L (136-145)
[2023-07-21 06:55] LABS: ALANINE AMINOTRANSFERASE 19 IU/L (13-61); ALBUMIN 2.7 g/dL (3.4-5.0); ASPARTATE AMINOTRANSFERASE 21 IU/L (15-37); BILIRUBIN TOTAL 0.3 mg/dL (0.1-1.0); CALCIUM 7.9 mg/dL (8.5-10.1); CARBON DIOXIDE 25 mEq/L (21-32); CREATININE 0.6 mg/dL (0.6-1.3); GLUCOSE 95 mg/dL (70-105); PROTEIN TOTAL 5.9 g/dL (6.0-8.3); UREA NITROGEN BLOOD 10 mg/dL (7-21)
[2023-07-21 08:00] VITALS: BP 119/69; PULSE 66; RESP 18; TEMP 97.7
[2023-07-21] MEDS: PAROXETINE HCL 10MG TABLET PO SCH (08:17)
[2023-07-21] MEDS: PANTOPRAZOLE 40MG DR TABLET PO SCH ×2 (08:17→21:48)
[2023-07-21] MEDS: LEVOTHYROXINE SODIUM 100MCG TABLET PO SCH (08:17)
[2023-07-21] MEDS: SODIUM CHLORIDE 0.45% 1,000 ML IV SCH (08:21)
[2023-07-21 12:00] VITALS: BP 106/56; PULSE 59; RESP 18; TEMP 96.8
[2023-07-21] MEDS: ENOXAPARIN 40MG/0.4ML SYR SUBCUT SCH (13:03)
[2023-07-21 16:00] VITALS: BP 108/50; PULSE 64; RESP 17; TEMP 97.6
[2023-07-21 20:00] VITALS: BP 103/54; PULSE 74; RESP 18; TEMP 97.5
[2023-07-21] MEDS: SENNOSIDES/DOCUSATE SOD 8.6/50MG TABLET PO SCH (21:48)
[2023-07-22] VITALS: BP 112/60; PULSE 80; RESP 18; TEMP 98.4
[2023-07-22 04:00] VITALS: BP 105/63; PULSE 54; RESP 20; TEMP 97.8
[2023-07-22] MEDS: PIPERACILLIN/TAZOBACTAM 3.375 G in DEXTROSE 5% WATER 50 ML IV SCH (05:39)
[2023-07-22 06:29] LABS: HEMATOCRIT 36.1 % (36.0-48.0); MEAN CORPUSCULAR HEMOGLOBIN 31.6 pg (28.0-32.0); MEAN CORPUSCULAR HGB CONC 33.3 g/dL (31.0-37.0); MEAN CORPUSCULAR VOLUME 94.7 fL (81.0-99.0); RED BLOOD CELL COUNT 3.82 mill/uL (4.2-5.4); RED CELL DISTRIBUTION WIDTH 14.4 % (11.6-14.6); WHITE BLOOD COUNT 6.4 x1000/uL (4.5-11.0)
[2023-07-22 07:45] LABS: CHLORIDE 110 mEq/L (98-107); INDEX HEMOLYSI 1 (1-3); INDEX ICTERIC 1 (1-4); INDEX LIPEMIC 1 (1-3); POTASSIUM 3.7 mEq/L (3.5-5.1); SODIUM 138 mEq/L (136-145)
[2023-07-22 07:50] LABS: CALCIUM 8.3 mg/dL (8.5-10.1); CARBON DIOXIDE 23 mEq/L (21-32); CREATININE 0.7 mg/dL (0.6-1.3); PHOSPHORUS 2.5 mg/dL (2.5-4.9); UREA NITROGEN BLOOD 12 mg/dL (7-21)
[2023-07-22 08:00] VITALS: BP 106/52; PULSE 60; RESP 18; TEMP 97.2
[2023-07-22] MEDS: PANTOPRAZOLE 40MG DR TABLET PO SCH (08:37)
[2023-07-22] MEDS: PAROXETINE HCL 10MG TABLET PO SCH (08:37)
[2023-07-22] MEDS: LEVOTHYROXINE SODIUM 100MCG TABLET PO SCH (08:37)
[2023-07-22 09:20] LABS: GLUCOSE 83 mg/dL (70-105)
[2023-07-22 10:26] VITALS: BP 106/62; PULSE 60; TEMP 97.6; O2SAT 98
== END 2023-07-22 11:05 | disposition home health service (06) | DRG 394 ==
LOC: ER 15:46 → MICUSO 22:13 → 8WST 07-19 00:09
PROVIDERS: ADMIT Internal Medicine; ATTEND Internal Medicine
DX: K62.89 Other specified diseases of anus and rectum (principal); E44.1 Mild protein-calorie malnutrition; I31.39 Other pericardial effusion (noninflammatory); F03.93 Unspecified dementia, unspecified severity, with mood disturbance; N39.0 Urinary tract infection, site not specified; K59.00 Constipation, unspecified; K57.30 Diverticulosis of large intestine without perforation or abscess without bleeding; K44.9 Diaphragmatic hernia without obstruction or gangrene; N28.1 Cyst of kidney, acquired; M06.9 Rheumatoid arthritis, unspecified; R32 Unspecified urinary incontinence; E03.9 Hypothyroidism, unspecified; E78.5 Hyperlipidemia, unspecified; M19.90 Unspecified osteoarthritis, unspecified site; M40.204 Unspecified kyphosis, thoracic region; M47.816 Spondylosis without myelopathy or radiculopathy, lumbar region; Z87.440 Personal history of urinary (tract) infections; Z98.82 Breast implant status; Z79.899 Other long term (current) drug therapy; Z68.23 Body mass index [BMI] 23.0-23.9, adult
CPT/HCPCS: 36415; 71045; 72070; 72110; 74177; 80048; 80053; 80061; 80305; 81003; 82270; 82607; 82728; 82746; 83540; 83550; 83605; 83735; 84100; 84145; 84439; 84443; 85025; 85027; 85379; 86850; 86900; 93005; 93306; 93970; 97162; 97166; 97535; 99285; J0696; J1650; J2405; J2543; J7060

== ENCOUNTER → 2024-06-25 | Outpatient (CLI) | payer MEDICARE, OTHER ==
[~2024-06-25] MED LIST changes: -SENN-257 MT; +SENN-362 MT
== END | disposition home or self-care (01) ==
LOC: RAD 09:56
PROVIDERS: ATTEND Internal Medicine Critical Care Medicine
DX: J44.9 Chronic obstructive pulmonary disease, unspecified (principal); R05.3 Chronic cough
CPT/HCPCS: 71046